=== PATIENT | male | born 1975 | race Caucasian/White ===

== ENCOUNTER 2018-11-21 08:39 | Emergency (ER) | payer BC ==
[2018-11-21 09:41] VITALS: BP 143/94
--- NOTE | 2018-11-21 10:11 | UC ---
Hypertension HPI - HPI Summary HPI Summary: 42 yo male has had elevated BP on multiple readings over the past month or two No OROZCO No CP or SOB - History of Current Complaint Chief Complaint: UCGeneralIllness Stated Complaint: WELLNESS CHECK "BLOOD PRESSURE" Time Seen by Provider: 11/21/18 10:02 Hx Obtained From: Patient Onset/Duration: Sudden Onset Timing: Constant Reported Blood Pressure Prior To Arrival:: multiple >140/>90 Aggravating Factor(s): Nothing Alleviating Factor(s): Nothing Associated Signs And Symptoms: Negative: Chest Pain, Vision Changes, Anxiety, Recent Stress, Headaches, Numbness, Tingling, Weakness, Dizziness, SOB, Swelling - Allergies/Home Medications Allergies/Adverse Reactions: Allergies Allergy/AdvReac Type Severity Reaction Status Date / Time No Known Allergies Allergy Verified 11/21/18 09:31 PMH/Surg Hx/FS Hx/Imm Hx Previously Healthy: Yes - keratoconnus - Surgical History Surgical History: Yes Surgery Procedure, Year, and Place: ADNOIDECTOMY - Family History Known Family History: Positive: Hypertension - Social History Alcohol Use: Occasionally Substance Use Type: None Smoking Status (MU): Never Smoked Tobacco Review of Systems All Other Systems Reviewed And Are Negative: Yes Constitutional: Positive: Negative Skin: Positive: Negative Eyes: Positive: Negative ENT: Positive: Negative Respiratory: Positive: Negative Cardiovascular: Positive: Negative Gastrointestinal: Positive: Negative Genitourinary: Positive: Negative Motor: Positive: Negative Neurovascular: Positive: Negative Musculoskeletal: Positive: Negative Neurological: Positive: Negative Psychological: Positive: Negative Physical Exam Triage Information Reviewed: Yes Appearance: Well-Appearing, No Pain Distress, Well-Nourished Vital Signs: Initial Vital Signs Temp 97.8 F 11/21/18 09:32 Pulse 69 11/21/18 09:32 Resp 16 11/21/18 09:32 BP 143/94 11/21/18 09:32 Pulse Ox 99 11/21/18 09:32 Vital Signs Reviewed: Yes Eyes: Positive: Conjunctiva Clear, Other: - ? bilat cataracts ENT: Positive: Hearing grossly normal. Negative: Nasal congestion, Nasal drainage, Tonsillar swelling, Tonsillar exudate, Hoarse voice, Uvula midline Neck: Positive: Supple, Nontender, No Lymphadenopathy Respiratory: Positive: Lungs clear, Normal breath sounds, No respiratory distress, No accessory muscle use Cardiovascular: Positive: RRR, No Murmur Musculoskeletal: Positive: ROM Intact, No Edema Neurological: Positive: Alert, Muscle Tone Normal Psychological Exam: Normal Skin Exam: Normal Hypertension Course/Dx - Differential Dx/Diagnosis Provider Diagnosis: Hypertension Discharge - Sign-Out/Discharge Documenting (check all that apply): Patient Departure All imaging exams completed and their final reports reviewed: No Studies - Discharge Plan Condition: Stable Disposition: HOME Prescriptions: NIFEdipine ER TAB* [Procardia Xl TAB*] 30 mg PO DAILY #14 tab.xl Patient Education Materials: Hypertension (ED) Referrals: Corrine Bean MD [Primary Care Provider] - 1 Week (recheck in 1-2 weeks as planned) Additional Instructions: I suggest you see your eye doctor - Billing Disposition and Condition Condition: STABLE Disposition: Home
== END 2018-11-21 10:21 | disposition home or self-care (01) ==
LOC: UCCORT 08:39
DX: I10 Essential (primary) hypertension (principal)
CPT/HCPCS: 99202; G0463